=== PATIENT | male | born 1990 | race Caucasian/White ===

== ENCOUNTER 2018-05-11 19:39 | Emergency (ER) | payer OTHER ==
[2018-05-11] MEDS ORDERED: diphenhydrAMINE INJ 50MG/ML VIAL (J1200) As Ordered (19:54)
[2018-05-11] MEDS ORDERED: dexameTHASONE 20 MG/5 ML VIAL (J1100) As Ordered (19:54)
[2018-05-11] MEDS: diphenhydrAMINE INJ 50MG/ML VIAL (J1200) IV (19:56)
[2018-05-11] MEDS: dexameTHASONE 20 MG/5 ML VIAL (J1100) IV (20:00)
== END 2018-05-11 21:30 | disposition home or self-care (01) ==
LOC: M ED 19:39
DX: T78.1XXA Other adverse food reactions, not elsewhere classified, initial encounter (principal); R22.0 Localized swelling, mass and lump, head; R00.0 Tachycardia, unspecified; Z91.013 Allergy to seafood
CPT/HCPCS: J1200

== ENCOUNTER 2018-07-04 13:18 | Emergency (ER) | payer OTHER ==
[2018-07-04] MEDS: predniSONE 20 MG TAB PO (13:54)
[2018-07-04] MEDS: diphenhydrAMINE 50 MG CAP PO (13:54)
== END 2018-07-04 15:17 | disposition home or self-care (01) ==
LOC: M ED 13:18
DX: T61.781A Other shellfish poisoning, accidental (unintentional), initial encounter (principal); Y92.9 Unspecified place or not applicable; Y93.9 Activity, unspecified; Z91.013 Allergy to seafood
CPT/HCPCS: 99283

== ENCOUNTER 2018-10-07 19:50 | Emergency (ER) | payer OTHER ==
[~2018-10-07] VITALS: Ht 172.7 cm; Wt 81.8 kg
[~2018-10-07 19:50] MED LIST: BENA25CA4 PO; EPIP0.3I2 IM; PRED20TA PO
[2018-10-07 22:20] LABS: MEAN CORPUSCULAR HEMOGLOBIN 31.1 pg (27.0-33.0); MEAN CORPUSCULAR HGB CONC 34.1 g/dl (32.0-36.5); MEAN CORPUSCULAR VOLUME 91.3 fl (80.0-96.0); PLATELET COUNT, AUTOMATED 265 10^3/uL (150-450); RED BLOOD COUNT 4.82 10^6/uL (4.30-6.10); WHITE BLOOD COUNT 8.4 10^3/uL (4.0-10.0)
[2018-10-07 23:16] VITALS: BP 129/76
== END 2018-10-07 23:17 | disposition home or self-care (01) ==
LOC: M ED 19:50
DX: F43.0 Acute stress reaction (principal)